=== PATIENT | female | born 1995 | race Two or more races ===

== ENCOUNTER 2022-04-13 11:05 | Emergency (ER) | payer MEDICAID ==
[~2022-04-13] VITALS: Ht 167.6 cm; Wt 81.6 kg
[2022-04-13] MEDS ORDERED: KETOROLAC TROMETHAMINE INJ 30 MG/ML VIAL ONE (11:59)
[2022-04-13] MEDS ORDERED: KETOROLAC TROMETHAMINE INJ 30 MG/ML VIAL IM ONE (12:00)
--- NOTE | 2022-04-13 12:19 | NUR ---
BACK TO ROOM FROM CT SCAN
[2022-04-13] MEDS ORDERED: IBUP-1957 PO (13:44)
[2022-04-13 14:11] VITALS: BP 115/64
--- NOTE | 2022-04-13 14:12 | NUR ---
Patient discharged to home in stable condition. Written and verbal after care instructions given. Patient verbalizes understanding of instruction.
== END 2022-04-13 14:13 | disposition home or self-care (01) ==
LOC: ER 11:57
DX: M54.41 Lumbago with sciatica, right side (principal); F07.81 Postconcussional syndrome; F32.A Depression, unspecified; F41.9 Anxiety disorder, unspecified
CPT/HCPCS: 99284; 70450; 96372; J1885